=== PATIENT | female | born 1985 | race Caucasian/White ===

== ENCOUNTER 2016-08-12 09:39 | Inpatient (IN) | payer OTHER ==
[2016-08-12] MEDS ORDERED: OLIVE OIL 118 ML BTL MISC PRN (10:25)
[2016-08-12] MEDS ORDERED: EPSOM SALT 454 GM TP PRN (10:25)
[2016-08-12] MEDS ORDERED: OXYTOCIN/RINGERS LACTATE 1,000 ML IV PRN (10:25)
[2016-08-12] MEDS ORDERED: TERBUTALINE SULFATE 1 MG/ML VIAL IV PRN (10:25)
[2016-08-12] MEDS ORDERED: AMPICILLIN SODIUM 2 GM in NS 100 ML IV ONE (10:25)
[2016-08-12] MEDS ORDERED: LIDOCAINE 1% 30 ML SDV SC PRN (10:25)
[2016-08-12 10:57] LABS: % IMMATURE GRANULYOCYTES 0.4 % (0.0-1.1); ABSOLUTE IMMATURE GRANULOCYTES 0.04 10^3/uL (0.00-0.10); ADD DIFF? NO; ADD MORPH? NO; ADD SCAN? NO; ATYPICAL LYMPHOCYTE FLAG 0 (0-99); FRAGMENT RBC FLAG 0 (0-99); HEMOGLOBIN 12.9 g/dL (12.6-16.3); LEFT SHIFT FLG 0 (0-99); LIPEMIA HEMOLYSIS FLAG 90 (0-99); MEAN CELL HEMOGLOBIN 32.1 pg (27.9-34.1); MEAN CELL HEMOGLOBIN CONCENTR. 35.8 g/dL (32.4-36.7); MEAN CELL VOLUME 89.6 fL (81.5-99.8); MEAN PLATELET VOLUME 10.1 fL (8.7-11.7); PLATELET CLUMPS FLAG 0 (0-99); PLATELET COUNT 283 10^3/uL (150-400); RED BLOOD CELL COUNT 4.02 10^6/uL (4.18-5.33); RED CELL DISTRIBUTION WIDTH 13.2 % (11.5-15.2)
[2016-08-12] MEDS ORDERED: LIDOCAINE 1% 30 ML SDV ONE (12:02)
[2016-08-12] MEDS ORDERED: OLIVE OIL 118 ML BTL ONE (12:02)
[2016-08-12] MEDS ORDERED: TERBUTALINE SULFATE 1 MG/ML VIAL ONE (12:03)
[2016-08-12] MEDS ORDERED: OXYTOCIN 10 UNIT/ML VIAL ONE (12:03)
[2016-08-12] MEDS ORDERED: MISOPROSTOL 200 MCG TAB ONE (12:03)
[2016-08-12] MEDS ORDERED: AMMONIA AROMATIC 1 EACH AMP IH ONE (12:03)
[2016-08-12] MEDS ORDERED: LR 500 ML IV PRN (13:55)
[2016-08-12] MEDS ORDERED: OXYTOCIN/RINGERS LACTATE 500 ML IV SCH (14:00)
--- NOTE | 2016-08-12 14:30 | GHP ---
[f rep st] PREOP HISTORY AND PHYSICAL DATE OF ADMISSION: 08/12/2016 ADMISSION DIAGNOSES: Intrauterine at 37-6/7 weeks' gestation, with spontaneous rupture of the membranes. HISTORY OF PRESENT ILLNESS: The patient is a 30-year-old, 2, para 1-0-0-1, with a last mens trual period of 11/20/2015, and EDC of 08/27/2016, which was confirmed by a first-trimester ultrasou nd. She has had good care with [facility] since registration at 8 weeks. Her pr enatal risk factors include rubella equivocal; history of HELLP syndrome in labor with G1; and postp artum a history of depression, on Prozac; and history of Fragile X valenzuela zone. Other than that, she has had a normal course, with normal blood pressures in this , normal ultrasounds in this , and she has progressed to 37-6/7. She reports spontaneous rupture of membranes f or clear fluid at approximately 8 a.m. this morning, with minimal contractions. Upon presentation t o Labor and Delivery, her heart tones were 140s, reactive, category 1. She was martinez ir regularly. Cervical exam was 1 at 80, and she was grossly ruptured for clear fluid. She is GBS-pos itive. She was started on ampicillin, and after a few hours of expectant management, she had minima l progression of her cervical exam. She is still 1 and about 80%, and the decision was made to begi n Pitocin for augmentation. Patient is in agreement. PAST OBSTETRICAL HISTORY: In May of 2014, she had a viable male, 7 pounds 13 ounces, at 40 wee ks, spontaneous vaginal delivery. She was in labor and began developing severe range blood pressure s. Her labs were checked, and she was in HELLP syndrome. She was started on magnesium, and that wa s continued . After her course, she did well, and this is her second . PAST GYNECOLOGICAL HISTORY: No history of any abnormal Paps. History of Depo-Provera and NuvaRing for contraception. She has a normal menstrual triad. No other gynecological problems. PAST MEDICAL HISTORY: She has a history of depression. She had been treated with Prozac in pregnan cy, and has continued that in this . She did have significant carpal tunnel in her first p regnancy. 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 Her spouse has been tested, and he is negative. 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 No other past medical problems. SURGICAL HISTORY: She had wisdom teeth extraction in high school. Left wrist ligament tear repair in 2009. SOCIAL HISTORY: She is . She lives with her and her son. She works as a [employer] t[employer]. She denies tobacco, alcohol, and drug use. MEDICATIONS: vitamins with DHA, Prozac 20 mg daily, and Zyrtec p.r.n. ALLERGIES: She has no known drug allergies. FAMILY HISTORY: Mother has mild asthma. Sister has IBS. Father has history of prostate cancer. M aternal grandmother had Alzheimer disease, and patient's niece at age 2 of Kamla-Pick disease . No other family history. PHYSICAL EXAMINATION: VITAL SIGNS: Currently, she is afebrile. Vital signs are stable. Blood pre ssure has been in the 110s over 70s and 120s over 60s. ABDOMEN: heart tones 140s, reactive. Moderate variability, category 1. Martinez irregula rly. PELVIC: Cervix is 1, 80%, -2. She is grossly ruptured for clear fluid. LABS: She is A positive, antibody negative. RPR nonreactive. Rubella, decreased immunity. Hepati tis negative. HIV negative. Cystic fibrosis, SMA negative. Fragile X valenzuela zone. Pap normal. Johnathan orrhea and chlamydia normal. Verifi was normal. 1-hour GTT was normal. GBS was positive. ASSESSMENT AND PLAN: A 30-year-old, 2, para 1-0-0-1 at 37-6/7 weeks' gestation, with sponta neous rupture of membranes, and no active labor. Patient was started on ampicillin for GBS prophyla xis, and she desires augmentation of labor with Pitocin. We will start this now, and will do active labor management. /[id number]/MODL
[2016-08-12] MEDS: AMPICILLIN SODIUM 1 GM in NS 100 ML IV SCH ×3 (15:31→23:22)
--- NOTE | 2016-08-12 17:28 | OBPROG ---
OBG Progress Note Assessment/Plan: Assessment: 30 y/o @ 37 6/7 weeks with SROM without active labor on pitocin. Plan: Pitocin per protocol now starting to see progress. Continue current management , status is reassuring. 08/12/16 17:26 Subjective: Pt is beginning to feel more regular contractions, still mild to moderate in intensity. No LOF. Objective: 08/12/16 10:40 Patient ABO/Rh A POSITIVE 08/12/16 10:40 - SVE Dilation (cm): 3 Effacement (%): 80 Station: -2 Current Contraction Pattern: Regular (Q2-3) FHR (bpm): 130 FHR Pattern Variability: Moderate FHR Category: 1 Membranes: Intact ICD10 Worksheet Patient Problems: Problems Problem Status Onset Pre-eclampsia, delivered Acute Premature rupture of membranes Acute
--- NOTE | 2016-08-12 19:47 | OBPROG ---
OBG Progress Note Assessment/Plan: Assessment: 30 y/o @ 37 6/7 weeks with SROM without active labor on pitocin. Plan: Pt desires an epidural now. When she is comfortable, I will AROM her forebag. Continue current management, status is reassuring. 08/12/16 17:26 08/12/16 19:46 Subjective: Pt is doing well beginning to feel more uncomfortable contractions. Objective: 08/12/16 10:40 Patient ABO/Rh A POSITIVE 08/12/16 10:40 - SVE Dilation (cm): 5 Effacement (%): 80 Station: -2 Current Contraction Pattern: Regular (Q2) FHR (bpm): 130 FHR Pattern Variability: Moderate FHR Category: 1 Membranes: SROM Amniotic Fluid Color: Clear ICD10 Worksheet Patient Problems: Problems Problem Status Onset Pre-eclampsia, delivered Acute Premature rupture of membranes Acute
[2016-08-12] MEDS ORDERED: fentaNYL 100 MCG/2 ML INJ ONE (19:49)
[2016-08-12] MEDS ORDERED: fentaNYL 2MCG/ML/BUP 0.1% RTU 100 ML BAG EP ONE (19:49)
[2016-08-12] MEDS ORDERED: BUPIVACAINE 0.25% 30 ML SDV ONE (19:50)
[2016-08-12] MEDS ORDERED: PHENYLEPHRINE HCL 100 MCG/ML SYR ONE (19:51)
[2016-08-12] MEDS ORDERED: PHENYLEPHRINE HCL 100 MCG/ML SYR IVP PRN (20:36)
[2016-08-12] MEDS: LR 1,000 ML IV PRN (20:36)
[2016-08-12] MEDS ORDERED: ONDANSETRON 4 MG/2 ML VIAL IVP PRN (20:36)
[2016-08-12] MEDS ORDERED: NALOXONE HCL 0.4 MG/ML INJ IVP PRN (20:36)
[2016-08-12] MEDS ORDERED: fentaNYL 2MCG/ML/BUP 0.1% RTU 100 ML EP SCH (21:00)
--- NOTE | 2016-08-12 21:09 | OBPROG ---
OBG Progress Note Assessment/Plan: Assessment: 30 y/o @ 37 6/7 weeks with SROM without active labor on pitocin. Plan: Continue pitocin, good cervical progression. Continue current management, status is reassuring. 08/12/16 17:26 08/12/16 19:46 08/12/16 21:08 Subjective: Pt is doing well now comfortable with her epidural. Objective: 08/12/16 10:40 Patient ABO/Rh A POSITIVE 08/12/16 10:40 - SVE Dilation (cm): 6 Effacement (%): 90 Station: -1 Current Contraction Pattern: Regular (Q3) FHR (bpm): 130 FHR Pattern Variability: Moderate FHR Category: 1 Membranes: AROM Amniotic Fluid Color: Clear ICD10 Worksheet Patient Problems: Problems Problem Status Onset Pre-eclampsia, delivered Acute Premature rupture of membranes Acute
--- NOTE | 2016-08-12 22:44 | OBPROG ---
OBG Progress Note Assessment/Plan: Assessment: 30 y/o @ 37 6/7 weeks with SROM without active labor on pitocin. Plan: IUPC placed because she hasn't had adequate cervical change. Will increase pitocin to achieve adequate change. 08/12/16 17:26 08/12/16 19:46 08/12/16 21:08 08/12/16 22:42 Subjective: Pt is still comfortable with her epidural. Objective: 08/12/16 10:40 Patient ABO/Rh A POSITIVE 08/12/16 10:40 - SVE Dilation (cm): 6 Effacement (%): 80 Station: -1 Current Contraction Pattern: Irregular (Q 3-4) FHR (bpm): 130 FHR Pattern Variability: Moderate FHR Category: 1 Membranes: AROM Amniotic Fluid Color: Clear ICD10 Worksheet Patient Problems: Problems Problem Status Onset Pre-eclampsia, delivered Acute Premature rupture of membranes Acute
--- NOTE | 2016-08-13 01:06 | OBPROG ---
OBG Progress Note Assessment/Plan: Assessment: 30 y/o @ 37 6/7 weeks with SROM without active labor on pitocin. Plan: Pitocin was d/c during the deceleration, will re start at 10 mU now. Now cervical change, will continue pitocin and close observation. 08/12/16 17:26 08/12/16 19:46 08/12/16 21:08 08/12/16 22:42 08/13/16 01:04 Subjective: Came to assess patient due to deceleration. She remains comfortable with her epidural and able to move. Objective: 08/12/16 10:40 Patient ABO/Rh A POSITIVE 08/12/16 10:40 - SVE Dilation (cm): 8 Effacement (%): 90 Station: 0 Current Contraction Pattern: Irregular (Q4) FHR (bpm): 130 (80's x 3 min resolved with hand and knees position) FHR Pattern Variability: Moderate FHR Category: 2 Membranes: AROM Amniotic Fluid Color: Clear ICD10 Worksheet Patient Problems: Problems Problem Status Onset Pre-eclampsia, delivered Acute Premature rupture of membranes Acute
[2016-08-13] MEDS: LR 1,000 ML IV PRN (02:48)
[2016-08-13] MEDS ORDERED: HYDROCORTISONE 0.5% CREAM TP PRN (04:05)
[2016-08-13] MEDS ORDERED: SIMETHICONE 80 MG TAB CHEW PO PRN (04:05)
[2016-08-13] MEDS ORDERED: ACETAMINOPHEN 325 MG TAB PO PRN (04:05)
[2016-08-13] MEDS ORDERED: HYDROCODONE/APAP 5/325 TAB PO PRN (04:05)
--- NOTE | 2016-08-13 04:08 | OBPROC ---
- Labor and Delivery Onset of Contractions Date: 08/12/16 Onset of Contractions Time: 13:00 Onset of Contractions Type: Induced Rupture of Membranes Date: 08/12/16 Rupture of Membranes Time: 07:30 Rupture of Membranes Type: Spontaneous Amniotic Fluid Color: Clear Dilation Complete Time: 02:43 Delivery Type: Spontaneous Placenta Delivery Date: 08/13/16 Placenta Delivery Time: 03:40 Episiotomy/Laceration: 2nd Degree, Perineal Repair: 2-0, Vicryl EBL: 350 Complications: None - Medications Labor Augmentation/Induction Meds Used: Pitocin Labor Augmentation/Induction Indication: Other (Specify) (SROM without adequate labor contractions) Anesthesia: Epidural, Local (Specify) (1% lidocaine) - Info A Delivery Date: 08/13/16 Delivery Time: 03:35 Sex of : Female Score (1 Min): 7 Score (5 Min): 7
[2016-08-13] MEDS: IBUPROFEN 600 MG TAB PO PRN ×3 (04:23→21:44)
[2016-08-13] MEDS ORDERED: MISOPROSTOL 200 MCG TAB PR ONE (06:00)
[2016-08-13] MEDS ORDERED: OXYTOCIN/RINGERS LACTATE 1,000 ML IV ONE (06:00)
[2016-08-13] MEDS: AMPICILLIN SODIUM 1 GM in NS 100 ML IV SCH ×2 (06:17→22:56)
--- NOTE | 2016-08-13 09:50 | OBPROG ---
OBG Progress Note Assessment/Plan: Assessment: 30 y/o PPD #0 s/p Plan: Pt had a significant post bleeding episode, which has resolved with additional pitocin and cytotec. Will observe closely, begin Bifera today and check Hct tomorrow am. Routine PPC. support. 08/12/16 17:26 08/12/16 19:46 08/12/16 21:08 08/12/16 22:42 08/13/16 01:04 08/13/16 09:48 Subjective: Pt is doing well this am. She denies dizziness and is ambulating and voiding without difficulty. Min lochia now. Baby is breast feeding without difficulty. Objective: 08/12/16 10:40 Patient ABO/Rh A POSITIVE 08/12/16 10:40 Temp Pulse Resp BP Pulse Ox 36.7 C 90 17 111/58 L 96 08/13/16 08:45 08/13/16 08:45 08/13/16 08:45 08/13/16 08:45 08/13/16 08:45 Uterine Position/Fundal Height: Umbilicus -2 Uterine Tone: Firm - Physical Exam General Appearance: WD/WN, alert, no apparent distress Neck: non-tender, full range of motion, supple Respiratory: chest non-tender, lungs clear, normal breath sounds Cardiac/Chest: regular rate, rhythm Abdomen: normal bowel sounds Extremities: swelling (1+), Davis's sign (neg) ICD10 Worksheet Patient Problems: Problems Problem Status Onset Pre-eclampsia, delivered Acute Premature rupture of membranes Acute
[2016-08-13] MEDS: DOCUSATE SODIUM 100 MG CAP PO PRN ×2 (11:31→21:44)
[2016-08-13] MEDS: IRON POLYSAC/IRON HEME 28 MG TAB PO SCH (11:32)
[2016-08-14] MEDS: IBUPROFEN 600 MG TAB PO PRN (05:27)
[2016-08-14] MEDS ORDERED: MEASLES,MUMPS&RUBELLA VACC/PF 0.5 ML VIAL SC ONE ×2 (07:11→10:00)
--- NOTE | 2016-08-14 07:46 | SOAPPROG ---
SOAP Progress Note Assessment/Plan: Assessment:FF@u scant rubra lochia well although anxious for milk to come in Baby hungry pain well managed anemic however not dizzy able to get around with ease voiding without difficulty perineum approximated Plan:Wanting to go home today if able. Discussed depression and fu mood check in 4 weeks, pain management, rest, iron supplementation, exercise with slow return to previous activity, stool softeners discussed, ss infection, pelvic rest 08/14/16 07:47 Subjective: Doing well denies difficulties. well. Cramping with . Doing well with pericare Objective: Vital Signs Temp Pulse Resp BP Pulse Ox 36.5 C 99 18 128/70 H 96 08/13/16 21:45 08/13/16 21:45 08/13/16 21:45 08/13/16 21:45 08/13/16 21:45 Laboratory Results 08/14/16 05:30 08/13/16 08/14/16 08/15/16 05:59 05:59 05:59 Output Total 888 Balance -888 - Pending Discharge Pending Discharge Date: 08/14/16 Pending Discharge Time: 11:00 Physical Exam - Physical Exam General Appearance: WD/WN, alert, no apparent distress Respiratory: chest non-tender, lungs clear, normal breath sounds Cardiac/Chest: regular rate, rhythm Skin: normal color, warm/dry Extremities: normal range of motion, Davis's sign (negative homens dtrs 1+ bilaterally) Neuro/Psych: no motor/sensory deficits, alert, normal mood/affect, oriented x 3 ICD10 Worksheet Patient Problems: Problems Problem Status Onset Pre-eclampsia, delivered Acute Premature rupture of membranes Acute
[2016-08-14 08:58] VITALS: BP 104/71; PULSE 87; RESP 16; TEMP 98.2; O2SAT 95
[2016-08-14] MEDS: IRON POLYSAC/IRON HEME 28 MG TAB PO SCH (10:03)
== END 2016-08-14 13:30 | disposition home or self-care (01) | DRG 774 ==
LOC: FLD 09:39 → FOB 08-13 07:13
PROVIDERS: ADMIT Obstetrics & Gynecology; ATTEND Obstetrics & Gynecology
PROC: 0KQM0ZZ Repair Perineum Muscle, Open Approach (ICD-10-PCS; principal; 2016-08-13)
PROC: 10E0XZZ Delivery of Products of Conception, External Approach (ICD-10-PCS; principal; 2016-08-13)
DX: O70.1 Second degree perineal laceration during delivery (principal); O72.1 Other immediate postpartum hemorrhage; O90.81 Anemia of the puerperium; O99.820 Streptococcus B carrier state complicating pregnancy; O99.343 Other mental disorders complicating pregnancy, third trimester; F32.9 Major depressive disorder, single episode, unspecified; Z3A.38 38 weeks gestation of pregnancy; Z37.0 Single live birth
CPT/HCPCS: J0290; J2370; J2590; J3010; J3105